=== PATIENT | female | born 1955 | race Two or more races ===

== ENCOUNTER 2019-03-23 07:34 | Outpatient (CLI) | payer OTHER | END 2019-03-23 07:45 | disposition home or self-care (01) | LOC: NUCLEAR 07:34 | DX: I20.9 Angina pectoris, unspecified (principal) | CPT/HCPCS: 78452; 93017; A9500; J0153 ==

== ENCOUNTER 2022-04-19 11:05 | Outpatient (CLI) | payer OTHER | END 2022-04-19 11:10 | disposition home or self-care (01) | LOC: RAD 11:05 | PROVIDERS: ATTEND Physical Medicine & Rehabilitation | DX: M25.552 Pain in left hip (principal); M54.17 Radiculopathy, lumbosacral region ==